=== PATIENT | male | born 1965 | race Caucasian/White ===

== ENCOUNTER 2019-11-20 20:27 | Emergency (ER) | payer BC ==
[~2019-11-20] VITALS: Ht 182.9 cm; Wt 108.9 kg
[~2019-11-20 20:27] MED LIST: ATR20T PO; DOXY100C2 PO; GLIM4TAB PO; LISI5TAB PO; MTF500T PO; MULT-963 PO; OMEP-10 PO; PRD20T PO
--- OUTSIDE RECORDS SUMMARY | 2019-11-20 20:32 | XMS REPORT | Continuity of Care Document ---
Author Organization Unknown Address Unknown Phone Unavailable Allergies There is no data. Medications There is no data. Problems There is no data. Procedures There is no data. Results There is no data. Encounters ACCT No. Visit Date/Time Discharge Status Pt. Type Provider Facility Loc./Unit Complaint [id number] 06/10/2019 16:20:19 06/10/2019 23:59: 59 CLS Outpatient Patrick Green [id number] 11/12/2012 20:48:00 013 22:15:00 DIS Emergency
--- OUTSIDE RECORDS SUMMARY | 2019-11-20 20:32 | XMS REPORT ---
Author Author Primitivo Green Organization [facility] Address [address] [place], [place] [id number] Care Team Providers Care Technical Support Director Name Role Phone Patrick Green PCP Patrick Green PreferredProvider Allergies and Adverse Reactions Name Reaction Notes NO KNOWN DRUG ALLERGIES Plan of Treatment Planned Activity Comments Planned Date Planned Time Plan/Goal CBC W/ AUTO DIFF (RFLX MAN DIFF IF IND). 05/27/2019 12:00 AM HEMOGLOBIN A1C 05/27/2019 12:00 AM LIPID PANEL 05/27/2019 12:00 AM TSH 05/27/2019 12:00 AM CMP 05/27/2019 12:00 AM Medications Active Name Start Date Estimated Completion Date SIG Co mments omeprazole oral capsule,delayed release(DR/EC) 20 mg take 1 capsule (20 mg) by oral route once daily before a meal lisinopril 2.5 mg oral tablet ta ke 1 tablet (2.5 mg) by oral route once daily atorvastatin 40 mg oral tablet 06/10/2019 t antonette 1/2 tablet (20 mg) by oral route twice weekly (Monday and cyclobenzaprine 10 mg oral tablet take 1 tablet (10 mg) by oral route up to 3 times per day (at bedtime) glimepiride 4 mg oral tablet 06/10/2019 06/04/2020 suma e 1 tablet (4 mg) by oral route once daily for 90 days Trulicity 1.5 mg/0.5 mL subcutaneous pen injector 06/10/2019 inject 0.5 milliliter (1.5 mg) by subcutaneous route every 7 days in the abdomen, thigh, or upper arm rotating injection sites Xigduo XR 10-1,000 mg oral tablet, IR - ER, biphasic 24hr 020 12/07/2019 take 1 tablet by oral route once daily in the morning with food for 90 days Discontinued Name Start Date Discontinued Date SIG Comments metformin oral tablet 500 mg 06/10/2019 suma e 1 tablet (500 mg) by oral route 2 times per day with morning and evening meals Jardiance oral tablet 25 mg 06/10/2019 take 1 tablet (25 mg) by oral route once daily in the morning Actos oral tablet 45 mg 06/10/2019 take 1 t ablet (45 mg) by oral route once daily losartan oral tablet 100 mg 06/10/2019 take 1 tablet (100 mg) by oral route once daily doxycycline hyclate oral capsule 100 mg 0 take 1 capsule (100 mg) by oral route 2 times per day prednisone oral tablet 20 mg 06/10/2019 take 1 mg/kg by oral route once daily fluocinonide topical gel 0.05 % 06/10/2019 apply to the affected area(s) by topical route 4 times per day Unisom (doxylamine) oral tablet 25 mg 06/10/2019 take 1-2 tablets by oral route daily Problem List Description Status Onset GERD (gastroesophageal reflux disease) Active History of GI bleed Active Hypertension Active Type 2 diabetes mellitus Active Vital Signs Date Time BP-Sys(mm[Hg] BP-Ginger(mm[Hg]) HR(bpm) RR(rpm) Temp WT HT HC BMI BSA BMI Percentile O2 Sat(%) 06/10/2019 4:02:00 PM 132 mm[Hg] 84 mm[Hg] 88 {beats}/min 16 rpm 99 F 237 lbs 72.5 in 31.7008 kg/m2 2.345 m2 94 % Social History Name Description Comments Tobacco Never smoker Alcohol Light History of Procedures Not available. Results Summary Not available. History Of Immunizations Not available. History of Past Illness Name Date of Onset Comments Asthma GERD (gastroesophageal reflux disease) Type 2 diabetes mellitus Hypertension History of GI bleed Peripheral neuropathy Hypertension May 27 2019 4:21PM GERD (gastroesophageal reflux disease) May 27 2019 4:21PM History of GI bleed May 27 2019 4:21PM Type 2 diabetes mellitus May 27 2019 4:21PM Prostate cancer screening May 27 2019 4:21PM HLD (hyperlipidemia) Jun 10 2019 4:10PM GERD (gastroesophageal reflux disease) Jun 10 2019 4:10PM History of GI bleed Jun 10 2019 4:10PM Hypertension Jun 10 2019 4:10PM Type 2 diabetes mellitus Jun 10 2019 4:10PM Payers Insurance Name Company Name Plan Name Plan Number Policy Number Rick cy Group Number Start Date BCBS [facility] [id number] N/ A BCBS [employer] [place] [id number] N/ A History of Encounters Visit Date Visit Type Provider 06/10/[address] Patrick Green DO
--- OUTSIDE RECORDS SUMMARY | 2019-11-20 20:32 | XMS REPORT ---
Author Author Primitivo Green Organization [facility] Address [address] [place], [place] [id number] Care Team Providers Care Wind Turbine Controls Engineer Name Role Phone Patrick Green PCP Patrick [...] Prostate cancer screening May 27 2019 4:21PM Payers Insurance Name Company Name Plan Name Plan Number Policy Number Rick cy Group Number [facility] Date [id number] N/ A [facility]BS [facility] [id number] N/ A History of Encounters Visit Date Visit Type Provider 06/10/[address] Patrick Green DO
--- OUTSIDE RECORDS SUMMARY | 2019-11-20 20:32 | XMS REPORT | Continuity of Care Document ---
Author Author [facility] Organization [facility] Address Unknown Phone Unavailable Care Team Providers Care Pipeline Inspector Name Role Phone NO, LOCAL PHYSICIAN PP Unavailable Insurance Providers Payer Name Policy Number Subscriber Name Relationship [facility] ([facility] [id number] Jignesh Hanley 01 Self / Same As Patient Advance Directives Directive Response Recor ded Date Advance Directives N 8:59pm Organ Donor Y 11/12/12 8 :59pm Problems No Known Problems or Medical conditions. Social History History Response Recorde d Date/Time Alcohol Use Occasionally Uses 11/12/12 8:59pm Recreational Drug Use N 11/12/12 8:59pm Allergies, Adverse Reactions, Alerts Allergen Type Severity Reaction Last Updated No Known Drug Allergies 11/12/12 Medications Medication Dose Units Route Sig Qty Days Doxycycline Hyclate 1 Ea ch PO BID 7 Prednisone 20 Mg PO TAPERING DOSE Metformin HCl (Metformin 500 Mg) 1 Each PO TIDWM Multivitamin (Multi-Vitamin Daily) 1 Each PO DAILY Omeprazole (Prilosec 20 Mg) 20 Mg PO DAILY@,16 Glimepiride 4 Mg PO DAILY Lisinopril (Prinivil) 5 Mg PO DAILY Atorvastatin Calcium (Lipitor 20MG) 2 Each PO TWICE WEEKLY Response Recorded Date/Time Status not known Unknown Results No Known Relevant Diagnostic Tests, Laboratory Data and/or Discharge Summary. Encounters Encounter Location Date/ Time Registered Emergency Room [facility] 11/12/12 8:48pm
--- OUTSIDE RECORDS SUMMARY | 2019-11-20 20:32 | XMS REPORT ---
Author Author Primitivo Green Organization [facility] Address [address] [place], [place] [id number] Care Team Providers Care Transmission Calibration Engineer Name Role Phone Patrick Green PCP [...] cy Group Number Start Date BCBS [employer]cbs [facility] [id number] N/ A BCBS [employer] [place] [id number] N/ A History of Encounters Visit Date Visit Type Provider 06/10/[address] Patrick Green DO
[2019-11-20] MEDS ORDERED: ASPIRIN 81 MG CHEW (CHILDREN'S ASA) PO ONE (20:45)
--- NOTE | 2019-11-20 20:50 | ED Chest Pain ---
General Chief Complaint: Chest Pain Stated Complaint: CP Source: patient Exam Limitations: no limitations History of Present Illness Date Seen by Provider: Nov 20, 2019 Time Seen by Provider: 20:47 Initial Comments ER with reports of central chest tightness as well as some upper back discomfort. This began about 35 minutes ago and resolved 30 minutes ago lasting for a total of about 15 minutes before resolving on its own. At the time of onset he states he was just driving around drinking a beer waiting on his daughter. He does have a history of hypertension, high cholesterol and type 2 diabetes. He has a strong family history of cardiac disease last Timing/Duration: changing over time Severity/Quality: moderate Location: central Radiation: no radiation Activities at Onset: none ASA po INSECTICIDE EXPERT: No NTG SL INSECTICIDE EXPERT: No Associated Symptoms: No nausea/vomiting, No shortness of breath Allergies and Home Medications Allergies Coded Allergies: No Known Drug Allergies (Unverified , 11/12/12) Home Medications Atorvastatin 20 Mg Tablet, 2 EACH PO TWICE WEEKLY, (Reported) Doxycycline Hyclate 100 Mg Capsule, 1 EACH PO BID Prescribed by: TRINH YATES on 11/12/122130 Glimepiride 4 Mg Tablet, 4 MG PO DAILY, (Reported) Lisinopril 5 Mg Tablet, 5 MG PO DAILY, (Reported) Metformin Hcl 500 Mg Tablet, 1 EACH PO TIDWM, (Reported) Multivitamin 1 Each Tablet, 1 EACH PO DAILY, (Reported) Omeprazole 20 Mg Capsule.dr, 20 MG PO DAILY@06,16, (Reported) Prednisone 20 Mg Tab, 20 MG PO TAPERING DOSE, (Reported) Patient Home Medication List Home Medication List Reviewed: Yes Review of Systems Review of Systems Constitutional: see HPI; No chills, No fever EENTM: See HPI Respiratory: See HPI; Denies Cough, Denies Shortness of Air Cardiovascular: See HPI; Denies Chest Pain Gastrointestinal: No Symptoms Reported Genitourinary: No Symptoms Reported Musculoskeletal: no symptoms reported Psychiatric/Neurological: No Symptoms Reported Past Nvxoihu-Uyztrp-Pcyahy Hx Patient Social History Recent Foreign Travel: No Contact w/Someone Who Travel: No Immunizations Up To Date Tetanus Booster (TDap): More than 5yrs Seasonal Allergies Seasonal Allergies: No Past Medical History Reproductive Disorders: No Sexually Transmitted Disease: No Diabetes, Non-Insulin dep Physical Exam Vital Signs Vital Signs - First Documented 6/24/20 20:30 Temp 36.0 Pulse 70 Resp 20 B/P (MAP) 140/103 (115) Pulse Ox 99 O2 Delivery Room Air Capillary Refill : Height, Weight, BMI Height: '" Weight: lbs. oz. kg; BMI Method: General Appearance: No Apparent Distress, WD/WN HEENT: PERRL/EOMI, TMs Normal Neck: Full Range of Motion, Normal Inspection Respiratory: Lungs Clear, Normal Breath Sounds, No Accessory Muscle Use, No Respiratory Distress Cardiovascular: Regular Rate, Rhythm, Normal Peripheral Pulses Gastrointestinal: Normal Bowel Sounds, Non Tender, Soft Extremity: Normal Capillary Refill, Normal Inspection Neurologic/Psychiatric: Alert, Oriented x3 Skin: Normal Color, Warm/Dry Progress/Results/Core Measures Results/Orders Lab Results Laboratory Tests Test 11/20/19 20:37 11/20/19 22:37 Range/Units White Blood Count 7.6 4.3-11.0 10^3/uL Red Blood Count 5.12 4.35-5.85 10^6/uL Hemoglobin 16.3 13.3-17.7 G/DL Hematocrit 47 40-54 % Mean Corpuscular Volume 92 80-99 FL Mean Corpuscular Hemoglobin 32 25-34 PG Mean Corpuscular Hemoglobin Concent 35 32-36 G/DL Red Cell Distribution Width 13.4 10.0-14.5 % Platelet Count 208 130-400 10^3/uL Mean Platelet Volume 10.1 7.4-10.4 FL Neutrophils (%) (Auto) 43 42-75 % Lymphocytes (%) (Auto) 44 12-44 % Monocytes (%) (Auto) 10 0-12 % Eosinophils (%) (Auto) 2 0-10 % Basophils (%) (Auto) 1 0-10 % Neutrophils # (Auto) 3.3 1.8-7.8 X 10^3 Lymphocytes # (Auto) 3.4 1.0-4.0 X 10^3 Monocytes # (Auto) 0.8 0.0-1.0 X 10^3 Eosinophils # (Auto) 0.1 0.0-0.3 10^3/uL Basophils # (Auto) 0.1 0.0-0.1 10^3/uL Prothrombin Time 12.6 12.2-14.7 SEC INR Comment 0.9 0.8-1.4 Activated Partial Thromboplast Time 27 24-35 SEC Sodium Level 137 135-145 MMOL/L Potassium Level 3.5 L 3.6-5.0 MMOL/L Chloride Level 100 98-107 MMOL/L Carbon Dioxide Level 25 21-32 MMOL/L Anion Gap 12 5-14 MMOL/L Blood Urea Nitrogen 16 7-18 MG/DL Creatinine 0.94 0.60-1.30 MG/DL Estimat Glomerular Filtration Rate > 60 BUN/Creatinine Ratio 17 Glucose Level 87 70-105 MG/DL Calcium Level 9.2 8.5-10.1 MG/DL Corrected Calcium 8.8 8.5-10.1 MG/DL Magnesium Level 2.2 1.6-2.4 MG/DL Total Bilirubin 0.4 0.1-1.0 MG/DL Aspartate Amino Transf (AST/SGOT) 22 5-34 U/L Alanine Aminotransferase (ALT/SGPT) 27 0-55 U/L Alkaline Phosphatase 74 40-136 U/L Myoglobin 42.4 10.0-92.0 NG/ML Troponin I < 0.028 < 0.028 <0.028 NG/ML B-Type Natriuretic Peptide < 10.0 <100.0 PG/ML Total Protein 7.3 6.4-8.2 GM/DL Albumin 4.5 3.2-4.5 GM/DL Serum Alcohol 131 H <10 MG/DL My Orders Orders - STEVIE MOON APRN Cbc With Automated Diff (11/20/19 20:39) Magnesium (11/20/19 20:39) Chest 1 View, Ap/Pa Only (11/20/19 20:39) Ekg Tracing (11/20/19 20:39) Comprehensive Metabolic Panel (11/20/19 20:39) Myoglobin Serum (11/20/19 20:39) Protime With Inr (11/20/19 20:39) Partial Thromboplastin Time (11/20/19 20:39) O2 (11/20/19 20:39) Monitor-Rhythm Ecg Trace Only (11/20/19 20:39) Ed Iv/Invasive Line Start (11/20/19 20:39) BNP (11/20/19 20:39) Troponin I (11/20/19 20:39) Aspirin Chewable Tablet (Baby Aspirin Ch (11/20/19 20:45) Alcohol (11/20/19 20:39) Troponin I (11/20/19 22:30) Medications Given in ED Vital Signs/I&O 11/20/19 11/20/19 11/20/19 20:30 20:30 23:00 Temp 36.0 36.6 Pulse 70 73 Resp 20 19 B/P (MAP) 140/103 (115) 105/79 (115) Pulse Ox 99 98 O2 Delivery Room Air Room Air Room Air Diagnostic Imaging Diagonstic Imaging: Xray Plain Films/CT/US/NM/MRI: chest Comments NAME: JIGNESH JEROME [facility] REC#: [id number] PT STATUS: REG ER : 1965 PHYSICIAN: STEVIE MOON APRN ADMIT DATE: 11/20/19/ER Draft Date of Exam:11/20/19 CHEST 1 VIEW, AP/PA ONLY INDICATION: Chest pain EXAMINATION: Single view chest 11/20/2019 FINDINGS: The cardiomediastinal silhouette is unremarkable. The pulmonary vasculature is within normal limits. The lungs and pleural spaces are clear. IMPRESSION: No evidence of an acute cardiopulmonary process. Dictated on workstation # [id number] Dict: 11/20/192049 Trans: 11/20/192057 [facility] [id number] Interpreted by: YAMILKA NORIEGA MD Electronically signed by: Departure Communication (Admissions) [id number] symptom-free. Discussed with the patient and then discussed with his and sister via telephone my plan to do a 2 hour troponin level at 10:30 PM. Admit him if positive and discharged home for close outpatient follow-up if it's negative. Patient agrees with this plan. Impression Primary Impression: Chest pain Qualified Codes: R07.9 - Chest pain, unspecified Disposition: 01 HOME, SELF-CARE Condition: Stable Departure-Patient Inst. Referrals: FRANCISCO MOSER DO (PCP) Primary Care Physician REED BECERRA MD FACP FACC CRISTELS Trace SWANSON MD, BASHAR J MD Patient Instructions: Chest Pain Add. Discharge Instructions: Call one of the oriental rug repairer tomorrow morning to make an appointment to be seen next week. Return to ER for any worsening symptoms or other concerns. All discharge instructions reviewed with patient and/or family. Voiced understanding. STEVIE MOON VETERINARIAN Nov 20, 2019 20:49
[2019-11-20 20:52] LABS: BASOPHILS # (AUTO) 0.1 10^3/uL (0.0-0.1); BASOPHILS % (AUTO) 1 % (0-10); EOSINOPHILS # (AUTO) 0.1 10^3/uL (0.0-0.3); EOSINOPHILS % (AUTO) 2 % (0-10); HEMATOCRIT 47 % (40-54); HEMOGLOBIN 16.3 G/DL (13.3-17.7); LYMPHOCYTES # (AUTO) 3.4 X 10^3 (1.0-4.0); LYMPHOCYTES % (AUTO) 44 % (12-44); MEAN CORPUSCULAR HEMOGLOBIN 32 PG (25-34); MEAN CORPUSCULAR HGB CONC 35 G/DL (32-36); MEAN CORPUSCULAR VOLUME 92 FL (80-99); MEAN PLATELET VOLUME 10.1 FL (7.4-10.4); MONOCYTES # (AUTO) 0.8 X 10^3 (0.0-1.0); MONOCYTES % (AUTO) 10 % (0-12); NEUTROPHILS # (AUTO) 3.3 X 10^3 (1.8-7.8); NEUTROPHILS % (AUTO) 43 % (42-75); PLATELET COUNT 208 10^3/uL (130-400); RED CELL DISTRIBUTION WIDTH 13.4 % (10.0-14.5); WHITE BLOOD COUNT 7.6 10^3/uL (4.3-11.0)
[2019-11-20 20:57] LABS: ALBUMIN 4.5 GM/DL (3.2-4.5)
[2019-11-20 20:58] LABS: CHLORIDE 100 MMOL/L (98-107); POTASSIUM 3.5 MMOL/L (3.6-5.0); SODIUM 137 MMOL/L (135-145)
[2019-11-20 20:59] LABS: CALCIUM 9.2 MG/DL (8.5-10.1)
--- NOTE | 2019-11-20 20:59 | Diagnostic Imaging Report ---
INDICATION: Chest pain EXAMINATION: Single view chest 11/20/2019 FINDINGS: The cardiomediastinal silhouette is unremarkable. The pulmonary vasculature is within normal limits. The lungs and pleural spaces are clear. IMPRESSION: No evidence of an acute cardiopulmonary process. Dictated by: Dictated on workstation # [id number]
[2019-11-20 21:00] LABS: GLUCOSE 87 MG/DL (70-105); TOTAL PROTEIN 7.3 GM/DL (6.4-8.2)
[2019-11-20 21:01] LABS: CARBON DIOXIDE 25 MMOL/L (21-32)
[2019-11-20 21:02] LABS: BILIRUBIN,TOTAL 0.4 MG/DL (0.1-1.0)
[2019-11-20 21:03] LABS: ALKALINE PHOSPHATASE 74 U/L (40-136)
[2019-11-20 21:04] LABS: CREATININE SERUM 0.94 MG/DL (0.60-1.30); GFR ESTIMATED > 60
[2019-11-20 21:05] LABS: BUN/CREATININE RATIO 17
[2019-11-20 21:06] LABS: MAGNESIUM 2.2 MG/DL (1.6-2.4)
[2019-11-20 21:07] LABS: ALANINE AMINOTRANSFERASE 27 U/L (0-55)
[2019-11-20 21:08] LABS: INR 0.9 (0.8-1.4); PROTHROMBIN TIME PATIENT 12.6 SEC (12.2-14.7)
[2019-11-20 23:00] VITALS: BP 105/79
== END 2019-11-20 23:00 | disposition home or self-care (01) ==
LOC: EDUNIT# 20:27 → ER 20:28
DX: R07.89 Other chest pain (principal); I10 Essential (primary) hypertension; E11.9 Type 2 diabetes mellitus without complications; E78.00 Pure hypercholesterolemia, unspecified; Z79.84 Long term (current) use of oral hypoglycemic drugs; Z79.52 Long term (current) use of systemic steroids
CPT/HCPCS: 71045; 80053; 83735; 83874; 83880; 84484; 85025; 85610; 85730; 93005; 93041; 99284; G0480; 36415; 80320